=== PATIENT | male | born 1990 | race Caucasian/White ===

== ENCOUNTER 2016-09-07 12:07 | Inpatient (IN) | payer MEDICAID, OTHER ==
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
[2016-09-07] MEDS ORDERED: cloZAPine 100 MG TAB PO STA (22:14)
[2016-09-07] MEDS ORDERED: PRAZOSIN 1 MG CAP PO STA (22:20)
[2016-09-07] MEDS ORDERED: DIVALPROEX ER 500 MG TAB.ER.24H PO STA (22:23)
[2016-09-08] MEDS ORDERED: LITHIUM CARBONATE ER 450 MG TABLET.ER PO SCH (15:00)
[2016-09-08] MEDS ORDERED: SERTRALINE 100 MG TAB PO SCH (15:00)
[2016-09-08] MEDS ORDERED: LORATADINE 10 MG TAB PO SCH (15:00)
[2016-09-08] MEDS ORDERED: DIVALPROEX ER 500 MG TAB.ER.24H PO SCH (21:00)
[2016-09-08] MEDS ORDERED: cloZAPine 100 MG TAB PO SCH (21:00)
[2016-09-08] MEDS ORDERED: PRAZOSIN 1 MG CAP PO SCH (22:30)
[2016-09-08] MEDS ORDERED: DOCUSATE 100 MG CAP PO SCH (22:30)
[2016-09-08] MEDS ORDERED: MAGNESIUM HYDROXIDE 2,400 MG/10 ML CUP PO PRN (22:49)
[2016-09-08] MEDS ORDERED: ZIPRASIDONE 20 MG VIAL IM PRN (22:49)
[2016-09-08] MEDS ORDERED: ACETAMINOPHEN TAB 325 MG TAB PO PRN (22:49)
[2016-09-08] MEDS ORDERED: MAG HYDROX/AL HYDROX/SIMETH 30 ML CUP PO PRN (22:49)
[2016-09-08] MEDS ORDERED: LORazepam 1 MG TAB PO PRN (22:54)
[2016-09-08] MEDS ORDERED: LORazepam 2 MG/ML SYRINGE IM PRN (22:54)
[2016-09-08] MEDS ORDERED: OLANZapine ODT 10 MG TAB PO PRN (22:55)
[2016-09-08 23:14] VITALS: RESP 16
[2016-09-09] MEDS: ASENAPINE 5 MG TAB SUBLINGUAL SCH ×2 (00:08→00:17)
[2016-09-09] MEDS ORDERED: SERTRALINE 100 MG TAB PO SCH (09:00)
[2016-09-09] MEDS ORDERED: DIVALPROEX ER 250 MG TAB.ER.24H PO SCH (09:00)
[2016-09-09] MEDS ORDERED: DIVALPROEX ER 500 MG TAB.ER.24H PO SCH ×3 (09:00→21:00)
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
[2016-09-09 11:00] LABS: ALT 23 U/L (21-72); AST 20 U/L (17-59); Alkaline Phosphatase 53 U/L (38-126); Anion Gap 8 mmol/L; Blood Urea Nitrogen 20 mg/dL (9-20); Calcium 9.4 mg/dL (8.4-10.2); Carbon Dioxide 29 mmol/L (22-30); Chloride 106 mmol/L (98-107); Glucose 103 mg/dL (74-99); Non-African American GFR(MDRD) >60 (>60 ml/min/1.73 sqM); Potassium 4.2 mmol/L (3.5-5.1); Sodium 143 mmol/L (137-145); Total Bilirubin 0.7 mg/dL (0.2-1.3); Total Protein 6.9 g/dL (6.3-8.2)
[2016-09-09 11:06] LABS: Basophils % (A) 1 %; CH 30.9; CHCM 31.9; Eosinophils # (A) 0.2 k/uL (0-0.7); Eosinophils % (A) 4 %; HCT 41.5 % (39.0-53.0); HDW 2.35; HGB 13.8 gm/dL (13.0-17.5); Luc % (Auto) 2; Lymphocytes # (A) 1.8 k/uL (1.0-4.8); Lymphocytes % (A) 33 %; MCH 32.3 pg (25.0-35.0); MCHC 33.2 g/dL (31.0-37.0); MCV 97.2 fL (80.0-100.0); Mean Platelet Volume 7.5; Monocytes # (A) 0.3 k/uL (0-1.0); Monocytes % (A) 6 %; Neutrophils # (A) 2.9 k/uL (1.3-7.7); Neutrophils % (A) 54 %; RBC 4.27 m/uL (4.30-5.90); WBC 5.3 k/uL (3.8-10.6); WBC (Perox) 5.61
[2016-09-09 11:40] LABS: Lithium 0.3 mmol/L
[2016-09-09] MEDS ORDERED: LITHIUM CARBONATE ER 450 MG TABLET.ER PO SCH (12:30)
[2016-09-09 14:52] VITALS: BP 109/56; PULSE 62; TEMP 98.5
[2016-09-09] MEDS ORDERED: LORazepam 2 MG/ML SYRINGE IM STA (15:56)
[2016-09-09] MEDS ORDERED: WATER FOR INJECTION, STERILE 10 ML IV ONE ×2 (16:19→16:22)
[2016-09-09] MEDS ORDERED: ZIPRASIDONE 20 MG VIAL IM ONE ×2 (16:19→16:22)
[2016-09-09] MEDS ORDERED: PRAZOSIN 1 MG CAP PO SCH ×2 (21:00)
[2016-09-09] MEDS ORDERED: cloZAPine 100 MG TAB PO SCH (21:00)
[2016-09-10 07:14] LABS: Norclozapine 74 ng/mL (200-700)
--- NOTE | 2016-09-10 15:45 | P.CONS ---
History of Present Illness - Reason for Consult Consult date: 09/09/16 Medical management - History of Present Illness This is a 25-year-old male with past medical history of schizophrenia , ADHD, anxiety. The patient is seen in his room as he has been combative. Patient is cooperative for examination. Urine drug screen was negative. Valproic acid 78.9, clozapine 239, nor clozapine 74, lithium 0.3. Patient has been admitted to the mental health unit. TSH is 3.03. Review of Systems All systems: negative Constitutional: Denies chills, Denies fever Eyes: denies blurred vision, denies pain Ears, nose, mouth and throat: Denies headache, Denies sore throat Cardiovascular: Denies chest pain, Denies shortness of breath Respiratory: Denies cough Gastrointestinal: Denies abdominal pain, Denies diarrhea, Denies nausea, Denies vomiting Musculoskeletal: Denies myalgias Integumentary: Denies pruritus, Denies rash Neurological: Denies numbness, Denies weakness Psychiatric: Reports irritability, Denies anxiety, Denies depression Endocrine: Denies fatigue, Denies weight change Past Medical History Additional Past Medical History / Comment(s): Schizophrenia, ADHD, Anxiety History of Any Multi-Drug Resistant Organisms: None Reported Past Surgical History: No Surgical Hx Reported Past Psychological History: ADD/ADHD, Schizophrenia Smoking Status: Never smoker Past Alcohol Use History: None Reported Additional Past Alcohol Use History / Comment(s): Stuart has no history of substance abuse Past Drug Use History: None Reported - Past Family History Father Additional Family Medical History / Comment(s): Patient states that his father is overseas in [place]. Mother Additional Family Medical History / Comment(s): Mother has history of asthma. Patient states that he has 10 half brothers and 7 half sisters. Some of them have diabetes. Medications and Allergies Home Medications Medication Instructions Recorded Confirmed Type ARIPiprazole [ARIPiprazole] 20 mg PO HS 09/07/16 09/07/16 History Docusate [Colace] 100 mg PO BID 09/07/16 09/07/16 History [place] Carbonate [Crane 450 mg PO DAILY 09/07/16 09/07/16 History Carbonate ER] Loratadine [Loratadine] 10 mg PO DAILY 09/07/16 09/07/16 History Prazosin HCl 2 mg PO HS 09/07/16 09/07/16 History Sertraline [Zoloft] 100 mg PO DAILY 09/07/16 09/07/16 History cloZAPine [Clozaril] 400 mg PO HS 09/07/16 09/07/16 History Allergies Allergy/AdvReac Type Severity Reaction Status Date / Time haloperidol [From Haldol] Allergy Unknown Verified 09/07/16 12:18 haloperidol lactate Allergy Unknown Verified 09/07/16 12:18 [From Haldol] Physical Exam Vitals: Vital Signs Temp Pulse Pulse Resp BP BP Pulse Ox 09/09/16 09:36 97.8 F 78 16 97/52 97 09/08/16 23:13 98.1 F 73 16 123/79 97 09/08/16 19:00 92 18 111/55 97 Intake and Output 09/08/16 09/09/16 09/09/16 22:59 06:59 14:59 Other: Weight 76.657 kg Gen: This is a 25-year-old male who is seen lying on bed in his room. He is cooperative. watchguard is at his bedside. HEENT: Head is atraumatic, normocephalic. Pupils equal, round. Sclerae is anicteric. NECK: Supple. No JVD. No lymphadenopathy. No thyromegaly. LUNGS: Clear to auscultation. No wheezes or rhonchi. No intercostal retractions. HEART: Regular rate and rhythm. No murmur. ABDOMEN: Soft. Bowel sounds are present. No masses. No tenderness. EXTREMITIES: No pedal edema. No calf tenderness. NEUROLOGICAL: Patient is awake, alert and oriented x3. Cranial nerves 2 through 12 are grossly intact. Results CBC & Chem 7: 09/09/16 10:16 09/09/16 10:16 Labs: Abnormal Lab Results - Last 24 Hours (Table) 09/09/16 09/09/16 Range/Units 10:16 10:16 RBC 4.27 L (4.30-5.90) m/uL Glucose 103 H (74-99) mg/dL Assessment and Plan Plan: 1. Schizophrenia. Patient admitted to the mental health unit. Continue current plan of care. 2. No tobacco use. No need for nicotine patch. 3. History of ADHD. Impression and plan of care have been directed as dictated by the signing physician. Justyna Fatima nurse practitioner acting as scribe for signing physician.
== END 2016-09-09 16:40 | DRG 885 ==
LOC: EC 12:07 → 3MHU 09-08 22:40
PROVIDERS: ADMIT Psychiatry & Neurology Psychiatry; ATTEND Psychiatry & Neurology Psychiatry
DX: F20.9 Schizophrenia, unspecified (principal); F79 Unspecified intellectual disabilities; F60.2 Antisocial personality disorder; F90.9 Attention-deficit hyperactivity disorder, unspecified type; Z79.899 Other long term (current) drug therapy
CPT/HCPCS: 80053; 80159; 80164; 80178; 80306; 82075; 84443; 85025; 93005